=== PATIENT | female | born 1945 | race Caucasian/White ===

== ENCOUNTER → 2019-04-29 | Outpatient (CLI) | payer MEDICARE ==
--- NOTE | 2019-04-29 14:42 | KCIC ---
EXAM: Chest, 2 views. HISTORY: Dyspnea on exertion. COMPARISON: None. FINDINGS: 2 views of the chest are obtained. There is no infiltrate, pleural effusion or pneumothorax. The heart is normal in size. There are coarse likely chronic interstitial markings. IMPRESSION: No acute pulmonary finding. Electronically signed by: Mary Lopes MD (04/29/2019 2:39 PM) [facility]
--- NOTE | 2019-04-29 15:37 | KCIC ---
EXAM: Dual energy x-ray absorptiometry (DEXA). HISTORY: Post menopausal screening. TECHNIQUE: Dual energy x-ray absorptiometry of the lumbar spine and the left hip was performed. T-score of average bone mineral density based was calculated based on standard deviations above or below the expected young adult normal value. Diagnostic definitions were established by the World Health Organization. FINDINGS: The average bone mineral density associated with L1-L4 is 0.856 g/cm^2, corresponding with a T-score of -1.7. The lowest measured T score is -2.6 at L3. The average total bone mineral density associated with the left hip is 0.746 g/cm^2, corresponding with a T-score of -1.6. In comparison with the baseline study of 02/26/2012, average bone mineral density at the lumbar spine has changed -5.3%, while the average density at the left hip has changed -6.3%. Refer to the worksheets for full detail. IMPRESSION: 1. The average bone mineral density is consistent with osteopenia. There is focal osteoporosis at L3. Electronically signed by: Robinson Sultana MD (04/29/2019 3:34 PM) [facility]
--- NOTE | 2019-04-29 19:38 | KCIC ---
Bilateral digital screening mammograms with 3-D tomosynthesis: Reason for examination: Routine screening. Comparison is made to previous studies dated 01/24/2016 and 03/09/2014. Bilateral mammograms in CC and oblique projections were obtained with 2-D imaging and 3-D tomosynthesis imaging on a Siemens Inspiration unit and reviewed on the workstation. Interpretation was made with the benefit of CAD. The skin and nipples show no abnormalities. No abnormal axillary lymph nodes are seen. The breast parenchyma shows scattered fatty and fibroglandular density. (Breast density: Category B.) There is some nodularity in the subareolar 9:00 position anteriorly in the left breast. Recommend further evaluation with coned compression views and ultrasound. There are no other dominant masses, suspicious calcifications or architectural distortion. Impression: Nodular density in the retroareolar 9:00 position of the left breast. Recommend further evaluation with coned compression views and ultrasound. BI-RADS Category 0: Incomplete. Needs additional imaging evaluation. "Our facility is accredited by the [employer] Mammography Program." This patient's information has been entered into a reminder system for the patient to be notified with the results of her examination and a target date for the next mammogram. Electronically signed by: Krystal Menendez MD (04/29/2019 7:35 PM) [facility]
== END | disposition home or self-care (01) ==
LOC: KCIC DEXA 13:56
PROVIDERS: ATTEND Family Medicine
DX: Z12.31 Encounter for screening mammogram for malignant neoplasm of breast (principal); M81.0 Age-related osteoporosis without current pathological fracture; M85.88 Other specified disorders of bone density and structure, other site; Z78.0 Asymptomatic menopausal state
CPT/HCPCS: 71046; 77063; 77067; 77080

== ENCOUNTER → 2019-05-23 | Outpatient (CLI) | payer MEDICARE ==
--- NOTE | 2019-05-23 14:32 | KCIC ---
Left breast diagnostic digital mammograms: Reason for examination: Nodular density on screening mammogram. Comparison is made to mammographic exam dated 04/29/2019. True lateral and coned compression views and CC and oblique projections were obtained of the left breast. There is some asymmetric parenchyma with a small nodule present in the 9:00 position anteriorly. No associated calcifications are identified. Further evaluation with ultrasound will follow. IMPRESSION: Asymmetric parenchyma with a small nodule present in the 9:00 position anteriorly in the left breast. Ultrasound to follow. BI-RADS Category 0: Incomplete. Needs additional imaging evaluation. Left breast ultrasound: Ultrasound examination of the left breast and axilla was performed. In the 9:00 position 3 cm from the nipple, there is some heterogeneous tissue with nodularity show some posterior acoustic shadowing. This measures at least 7 mm in greatest dimension. Further evaluation with ultrasound-guided biopsy is recommended. No abnormal appearing lymph nodes are seen in the left axilla. IMPRESSION: Focal nodularity with posterior shadowing measuring at least 7 mm in size in the 9:00 position 3 cm from the nipple. Recommend ultrasound-guided biopsy. BI-RADS Category 4: Suspicious. The patient has been notified about these findings and the patient's physician, Dr. Killian, was notified about these findings on 05/23/2019 at 1425. "Our facility is accredited by the [employer] Mammography [employer]." This patient's information has been entered into a reminder system for the patient to be notified with the results of her examination and a target date for the next mammogram. Electronically signed by: Krystal Menendez MD (05/23/2019 2:29 PM) [facility]
== END ==
LOC: KCIC MAMMO 12:39
PROVIDERS: ATTEND Family Medicine
DX: N63.20 Unspecified lump in the left breast, unspecified quadrant (principal)
CPT/HCPCS: 76641; 77065

== ENCOUNTER → 2019-06-19 | Outpatient (CLI) | payer MEDICARE ==
--- NOTE | 2019-06-19 12:28 | RAD ---
Examination: DIGITAL DIAGNOSTIC LT, US GUID NDL PLACE/ASPI/BX History: Abnormal mammogram and ultrasound exams Comparison/Correlation: 05/23/2019 left breast ultrasound and diagnostic mammographic exam, 04/29/2019 screening mammographic exam Findings: Risks and benefits of ultrasound-guided left breast biopsy were discussed with the patient and informed consent was obtained. ChloraPrep was utilized to cleanse the left breast. Sterile drapes, sterile probe cover, and sterile gel were utilized. Medial approach was utilized. A total of 6 cc 1 percent lidocaine was administered medial to the mass and slightly lateral to it. Scalpel incision was made. An introducer was placed. 12-gauge core biopsy needle was then placed into the mass. Total of 6 passes were made. A biopsy clip marker was then placed via the introducer with ultrasound guidance. The patient tolerated the procedure well without immediate complications. Postbiopsy MLO and CC images of the left breast were obtained and reviewed on a mammographic workstation. A biopsy clip marker is in place at the site of interest reported on previous recent mammographic examination. No hematoma or other collection identified at this site. Impression: Successful ultrasound biopsy of the left breast lesion of interest with clip marker placement. Electronically signed by: Av Dorado MD (06/19/2019 12:26 PM) [facility]
--- NOTE | 2019-06-20 15:07 | PATHOLOGY ---
[facility] Accession Number: [id number] . 01 Material submitted: . breast - LEFT BREAST, 9:00, 3CMFN. Modifiers: left, 9:00 . 01 Clinical history: . Left breast mass . 02 Diagnosis: Breast tissue, left breast mass 9:00 needle biopsies: - Dense stromal fibrosis. See comment. . (JPM:maki; 06/20/2019) QMS 06/20/2019 1200 Local . 02 Comment: Sections of the left breast mass at 9:00 needle biopsy reveal segments of breast tissue showing areas of dense stromal fibrosis. There are several scattered small ducts. The ducts show no atypical epithelial proliferation. There is no evidence of malignancy. Correlate with mammographic findings. (JPM:maki; 06/20/2019) . 02 Electronically signed: . Sumit Torres MD, Pathologist NPI- [id number] . 01 Gross description: . Received in formalin labeled "aRdha Lopez, left breast 9:00 3 cm FN," are 5 distinct needle cores of yellow-hogue fibrofatty tissue ranging from 0.4-1.3 cm in length and 0.2-0.3 cm in diameter. The tissue is submitted in its entirety in cassette A1-A3. The cold ischemic time is 8 minutes. The total formalin fixation time is 12 hours and 9 minutes. (TSD; 06/19/2019) TOB/TOB 06/19/2019 1732 Local . 02 Pathologist provided ICD-10: N60.32 . 02 CPT . 635610 Specimen Comment: A courtesy copy of this report has been sent to [phone] Specimen Comment: [id number], Specimen Comment: Report sent to DR JEFFRIES,DR SHAH / DR ABDI Performed at: 01 [facility] [address], [place], [place] [id number] MD Gumaro Richard MD Phone: [phone] Performed at: 02 [facility] [address], [place] [id number] MD Sumit Torres MD Phone: [phone]
== END ==
LOC: US 10:03
PROVIDERS: ATTEND Surgery
DX: N63.20 Unspecified lump in the left breast, unspecified quadrant (principal); N60.32 Fibrosclerosis of left breast
CPT/HCPCS: 19083; 77065; 88305; C1713; 19081; 76942

== ENCOUNTER → 2021-03-25 | Outpatient (CLI) | payer MEDICARE ==
--- NOTE | 2021-03-25 16:57 | KCIC ---
Examination: MRI of the left ankle without contrast HISTORY: History of left tibial tendinitis COMPARISON: None available TECHNIQUE: Multiplanar, multisequence MR imaging of the left ankle without contrast FINDINGS: The distal attachment of the Achilles tendon grossly appears intact. The alignment of the plantar fas jose to the calcaneus grossly appears intact. The alignment of the tarsal bones appears unremarkable. The anterior extensor compartment tendons, flexor tendons, peroneal tendons grossly appears intact. T here is moderate increased T2 signal/edema identified in the soft tissue particularly in the subcutan eous region posterior and superior to the ankle joint and extending medially and laterally. The deltoid ligament appears intact. The anterior and posterior tibiofibular, talofibular ligaments a ppear intact. IMPRESSION: 1. Moderate increased T2 signal/edema identified in the soft tissue particularly in the subcutaneous region posterior and superior to the ankle joint and extending medially and laterally. Differential includes edema, cellulitis. 2. No evidence of internal derangement of the ankle joint. Electronically signed by: Dre Rice MD (03/25/2021 4:54 PM) [id number]
== END ==
LOC: KCIC MRI 14:19
PROVIDERS: ATTEND Podiatrist
DX: M76.822 Posterior tibial tendinitis, left leg (principal); L03.90 Cellulitis, unspecified; R60.9 Edema, unspecified
CPT/HCPCS: 73721

== ENCOUNTER → 2021-05-02 | Outpatient (CLI) | payer MEDICARE ==
--- NOTE | 2021-05-02 13:28 | KCIC ---
EXAM: DUAL ENERGY X-RAY ABSORPTIOMETRY (DEXA). HISTORY: Postmenopausal screening. FINDINGS: The lowest measured T-score is -1.5 in the left total femur, based on a bone mineral densit y of 0.755 g/cm^2. Refer to the worksheets for full detail. In comparison with the prior study of 04/29/2019, average bone mineral density at the lumbar spine maldonado s changed +1.3%, while the average density at the hips has changed +6.6%. IMPRESSION: Low bone mass. Bone mineral density yields a T-score between -1.0 and -2.5. Fracture risk is increase d. FRAX was not calculated. METHODOLOGY: Dual energy x-ray absorptiometry was performed to measure bone mineral density. The foll owing analysis is based on the 2019 Official Positions of the International Society for Clinical Dens itometry: Measurements of the hips and the average of L1-L4 are preferred. When the spine and/or hip cannot be feasibly measured or interpreted, or in the setting of hyperparathyroidism, distal radial bone minera l density may be measured. The lumbar spine T-score is based on the average bone mineral density of L1-L4. In the setting of art ifact or anatomic abnormality, some lumbar levels may be excluded, and the remaining levels used for calculation. A single lumbar level is not used for diagnosis, and if only a single level is available for assessment, another anatomic site will be used to assign a diagnosis. The hip T-score is based on the bone mineral density measurement of the femoral neck or total proxima l femur of either side, whichever is lowest. Bilateral mean values are not used for diagnosis. The forearm T-score is derived from 33% of the distal radius of the nondominant forearm. For postmenopausal and perimenopausal women, and men age 50 or older, of all ethnic groups, T-scores are calculated through comparison of the current measurement with the NHANES III database standard fo r females aged 20-29 years. The lowest T-score of the evaluated anatomic sites is used to a ssign a diagnosis based on the World Health Organization densitometric classification. In premenopausal females and males younger than age 50, a Z-score is calculated based on population s pecific reference data for patient sex and self-reported ethnicity. Electronically signed by: Robinson Sultana MD (05/02/2021 1:26 PM) [id number]
== END ==
LOC: KCIC DEXA 13:00
PROVIDERS: ATTEND Family Medicine
DX: M81.0 Age-related osteoporosis without current pathological fracture (principal); Z78.0 Asymptomatic menopausal state
CPT/HCPCS: 77080